=== PATIENT | female | born 1950 | race Caucasian/White ===

== ENCOUNTER 2021-09-24 11:12 | Outpatient (CLI) | payer OTHER, SELFPAY ==
[2021-09-24 11:30] LABS: Hematocrit 38.3 % (35.0-42.0); Hemoglobin 12.3 g/dL (11.7-13.8); Mean Corpuscular HGB Conc 32.1 g/dL (32.0-36.0); Mean Corpuscular Hemoglobin 28.1 pg (27.0-31.0); Mean Corpuscular Volume 87.4 fL (78.0-102.0); Mean Platelet Volume 9.7 fl (9.2-11.8); Platelet Count Result 269 K/mm3 (150-420); Red Blood Count 4.38 M/mm3 (4.20-5.40); Red Cell Distribution Width 14.3 % (11.6-14.4); White Blood Count 8.6 K/mm3 (4.8-10.8)
[2021-09-24 12:52] LABS: Alanine Aminotransferase 16 U/L (14-59); Albumin Level 3.8 g/dL (3.4-5.0); Alkaline Phosphatase 95 U/L (46-116); Anion Gap 7 mmol/L (8-16); Aspartate Amino Transferase 19 U/L (15-37); Bilirubin,Total 0.4 mg/dL (0.00-1.00); Blood Urea Nitrogen 15 mg/dL (7-18); Calcium 9.3 mg/dL (8.5-10.1); Carbon Dioxide 29 mmol/L (21-32); Chloride 106 mmol/L (98-108); Cholesterol 168 mg/dL (0-200); Estimated Glomerular Filt Rate > 60; Folic Acid 17.9 ng/mL (8.6->20); Glucose 94 mg/dL (70-99); HDL Direct 94 mg/dL (40-60); LDL Cholesterol Calculated 62 mg/dL (<130); Osmolality Calculated 294 mOsm/kg (285-295); Potassium 4.5 mmol/L (3.5-5.1); Sodium 142 mmol/L (136-145); Total Protein 7.4 g/dL (6.4-8.2); Triglycerides 61 mg/dL (0-150); Vitamin B12 346 pg/mL (193-986)
[2021-09-24 12:55] LABS: Thyroid Stimulating Hormone Reflex 0.88 u/IU/mL (0.36-3.74)
== END 2021-09-24 11:13 | disposition home or self-care (01) ==
PROVIDERS: PCP Family Medicine; Visit Provider Family Medicine
DX: E78.5 Hyperlipidemia, unspecified (principal); I10 Essential (primary) hypertension; E11.9 Type 2 diabetes mellitus without complications; E53.8 Deficiency of other specified B group vitamins
CPT/HCPCS: 36415; 80053; 80061; 82607; 82746; 84443; 85027